=== PATIENT | female | born 1985 | race Caucasian/White ===

== ENCOUNTER 2017-07-20 18:23 | Emergency (ER) | payer OTHER ==
[~2017-07-20] VITALS: Ht 154.9 cm; Wt 61.2 kg
[~2017-07-20 18:23] MED LIST: IBUPROFEN600 MG PO; ULTRAM50 MG PO
== END 2017-07-20 20:27 | disposition home or self-care (01) ==
LOC: ED 18:23
DX: R10.9 Unspecified abdominal pain (principal); R10.813 Right lower quadrant abdominal tenderness; F17.200 Nicotine dependence, unspecified, uncomplicated; Z90.49 Acquired absence of other specified parts of digestive tract
CPT/HCPCS: 36415; 80053; 81001; 83690; 84703; 85025; 99283

== ENCOUNTER 2023-04-14 12:06 | Emergency (ER) | payer OTHER ==
[~2023-04-14] VITALS: Ht 154.9 cm; Wt 91.0 kg
--- OUTSIDE RECORDS SUMMARY | ~2023-04-14 | XMS | Continuity of Care Document ---
Demographics + + + | Address | [address] | | | [place] [address] | + + + | Preferred Language | Unknown | + + + | Marital Status | Never | + + + | Jehovah'S Witness Affiliation | Unknown | + + + | Race | White | + + + | Ethnic Group | Unknown | + + + Author + + + | Author | [facility] | + + + | Organization | [facility] | + + + | Address | [address] | | | [place] [address] | + + + | Phone | | + + + Care Team Providers + + + + | Care Lard Tub Washer Name | Role | Phone | + + + + Unavailable | Unavailable | + + + + Allergies and Intolerances + + + + + + | date | description | facility | reaction | severity | + + + + + + | (no date) | No Known | [facility] | (no reaction) | (no severity) | | | Allergies | | | | + + + + + + Encounters No information. Functional Status No information. Immunizations No information. Medications No information. Problems + + + + | date | description | facility | + + + + | 2023-02-13 16:00 | ENCNTR SCREEN MAMMOGRAM | [facility] | | | FOR MALIGNANT NE | | + + + + | 2023-02-13 16:00 | ENCNTR SCREEN MAMMOGRAM | [facility] | | | FOR MAL[facility]NA[facility] NEOPLASM OF | | | | BREAST | | + + + + | 2023-02-13 16:00 | FAMILY HISTORY OF | [facility] | | | MALIGNANT NEOPLASM OF | | | | BREAST | | + + + + Procedures No information. Results/Labs No information. Social History No information. Vital Signs No information."
--- OUTSIDE RECORDS SUMMARY | ~2023-04-14 | XMS | Continuity of Care Document ---
Demographics + + + | Address | [address] | | | [place] [address] | + + + | Preferred Language | Unknown | + + + | Marital Status | Never | + + + | Quaker Affiliation | Unknown | + + + | Race | White | + + + | Ethnic Group | Unknown | + + + Author + + + | Author | [facility] | + + + | Organization | [facility] | + + + | Address | [address] | | | [place] [address] | + + + | Phone | | + + + Care Team Providers + + + + | Care Building Official Name | Role | Phone | + [...]
--- OUTSIDE RECORDS SUMMARY | 2023-04-14 12:09 | XMS ---
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 Melvin has no Care Guidelines for this patient. Tg VISIT COUNT (12 MO.) 1 KEVON Holder TOTAL 1 NOTE: Visits indicate total known visits. ED/C VISIT TRACKING (12 MO.) 04/14/2023 12:07 KEVON Hernandez OR TYPE: Emergency COMPLAINT: - NECK PAIN INPATIENT VISIT TRACKING (12 MO.) No inpatient visits to display in this time frame [email or web address]
[2023-04-14] MEDS ORDERED: PHENTERMINE HCL15 MG PO (12:18)
[2023-04-14] MEDS ORDERED: LISINOPRIL20 MG PO (12:18)
[2023-04-14] MEDS ORDERED: PREDNISONE20 MG PO (13:01)
[2023-04-14 13:09] VITALS: BP 135/93
== END 2023-04-14 13:10 | disposition home or self-care (01) ==
LOC: ED 12:06
DX: M54.2 Cervicalgia (principal); F17.200 Nicotine dependence, unspecified, uncomplicated; Z79.899 Other long term (current) drug therapy
CPT/HCPCS: 99283

== ENCOUNTER 2023-06-07 17:04 | Emergency (ER) | payer OTHER ==
[~2023-06-07] VITALS: Ht 154.9 cm; Wt 89.7 kg
[~2023-06-07 17:04] MED LIST changes: +LISINOPRIL20 MG PO; +PHENTERMINE HCL15 MG PO; +PREDNISONE20 MG PO
[2023-06-07] MEDS ORDERED: KETOROLAC TROME10 MG PO (17:18)
[2023-06-07] MEDS ORDERED: CYCLOBENZAPRINE5 MG PO (17:18)
[2023-06-07 18:08] LABS: BILIRUBIN, URINE NEGATIVE (negative); BLOOD/HGB, URINE NEGATIVE (Negative); KETONE, URINE NEGATIVE (Negative); LEUK ESTERASE, URINE NEGATIVE (negative); NITRITE, URINE NEGATIVE (negative); PH, URINE 5.5 (5-7)
[2023-06-07 19:40] VITALS: BP 124/62
== END 2023-06-07 19:40 | disposition home or self-care (01) ==
LOC: ED 17:04
PROVIDERS: Emergency Medicine
DX: M54.6 Pain in thoracic spine (principal); M54.50 Low back pain, unspecified; F17.200 Nicotine dependence, unspecified, uncomplicated; Z79.52 Long term (current) use of systemic steroids; Z79.899 Other long term (current) drug therapy
CPT/HCPCS: 72070; 72100; 81003; 84703; 99283-25

== ENCOUNTER 2025-08-10 11:50 | Day surgery (SDC) | payer OTHER ==
[~2025-08-10] VITALS: Ht 154.9 cm; Wt 79.5 kg
[~2025-08-10 11:50] MED LIST changes: +CYCLOBENZAPRINE5 MG PO; +IBLOOD GLUCOSE TEST STRIP 1 EA TEST VI PRN; +KETOROLAC TROME10 MG PO; +LACTATED RINGER'S 1,000 ML IV SCH; +LIDOCAINE HCL 1% 5 ML SDV INJ ONE; +MIDAZOLAM HCL 5 MG/5 ML VIAL IV PRN; +fentaNYL citrate 100 MCG/2 ML VIAL IV PRN
[2025-08-10 12:28] VITALS: BP 109/69
[2025-08-10] MEDS ORDERED: MOUNJARO12.5 MG/0. SUB-Q (12:32)
[2025-08-10] MEDS ORDERED: fentaNYL citrate 100 MCG/2 ML VIAL ONE (12:54)
[2025-08-10] MEDS ORDERED: MIDAZOLAM HCL 5 MG/5 ML VIAL ONE (12:54)
--- NOTE | 2025-08-10 14:43 | NUR ---
08/10/25 1443 Sravanthi,Debra 1339 PT ARRIVED TO PACU, PT WAKES EASILY. VSS. PT DENIES CONCERNS. PLAN OF CARE DISCUSSED. 1350 HOB INCREASED AND PT ROLLED TO HER BACK. PT SIPPING WATER AND JUICE PER REQUEST. MD AT BEDSIDE TALKING TO PT. 1414 DC INSTRUCTIONS GIVEN AND PT DRESSED HERSELF. PT FAMILY CALLED FOR RIDE HOME. ALL QUESTIONS ANSWERED. DC PAPERWORK GIVEN. PT DC VIA .
[2025-08-10 14:45] VITALS: BP 101/78
--- NOTE | 2025-08-11 18:38 | OR ---
[facility] [address] [place], [place] [address] Signed DATE OF OPERATION: 08/10/2025 SURGEON: Alfred Coronel MD PREOPERATIVE DIAGNOSES: 1. Colon screening. 2. Family history of colon cancer, maternal grandfather and paternal grandfather. POSTOPERATIVE DIAGNOSIS: Edematous, mildly inflamed appendiceal orifice, otherwise normal. PROCEDURE: Total colonoscopy to cecum with biopsy of appendiceal orifice. ANESTHESIA: Intravenous sedation; fentanyl 100 mcg, Versed 9 mg. INDICATION: This 40-year-old woman is a patient of Shae Garcia and is here for a screening colonoscopy. She has no prior history of colon evaluation. She did undergo cholecystectomy in 2012 by me. She has family history of colon cancer in a paternal grandfather and maternal grandfather. She has no current symptoms of bleeding, diarrhea, or constipation. She is admitted at this time to undergo colonoscopy understanding the risk of bleeding, infection, and perforation. FINDINGS: The prep was excellent. Complete colonoscopy was undertaken of the cecum with full intubation of the cecum. Appendiceal orifice, where it was crater like edematous and somewhat inflamed. I saw no sign of intraluminal neoplasm or anything of that sort. She is not known to have had appendectomy in the past. Biopsies were obtained. The remaining colon and rectum were normal. DESCRIPTION OF PROCEDURE: The patient was brought to the endoscopy suite and placed in lateral decubitus position, given intravenous sedation to the point of slurred speech and nystagmus. Digital rectal examination was normal. An Olympus video colonoscope was passed in the rectum and manipulated throughout the colon ultimately intubating the cecum itself. The ileocecal valve and appendiceal orifice were identified. Appendiceal orifice had a crater like appearance, was somewhat inflamed and edematous unlike the surrounding cecal mucosa. It was biopsied and passed for permanent pathology. There was no evidence of intraluminal Electronically Signed By: ALFRED CORONEL MD 08/11/25 2266 PATIENT NAME: SELMA BROWER OPERATIVE REPORT DATE OF : 81 REPORT #: [id number] PHYSICIAN: ALFRED CORONEL MD PCP: SHAE GARCIA REPORT IS CONFIDENTIAL AND NOT TO BE RELEASED WITHOUT AUTHORIZATION [facility] [address] [place] [id number] Signed neoplasm or adenoma. The scope was withdrawn from that point. Examination throughout showed no sign of other abnormality. Retroflexed view was normal as well. Scope was removed. The patient was taken to the recovery room in good condition. CONCLUDING DIAGNOSIS: Inflamed appendiceal orifice without sign of neoplasm. PLAN: Await biopsies. Would otherwise recommend repeat colonoscopy in 7-10 years based on current guidelines as regards to family history. MD PRACHI Ham/YOJANA /[id number] cc: Shae Garcia PA-C Copies: SHAE GARCIA ~ Electronically Signed By: ALFRDE CORONEL MD 08/11/25 1838 PATIENT NAME: SELMA BROWER OPERATIVE REPORT DATE OF : 81 REPORT #: [id number] PHYSICIAN: ALFRED CORONEL MD PCP: SHAE GARCIA PAC REPORT IS CONFIDENTIAL AND NOT TO BE RELEASED WITHOUT AUTHORIZATION
== END 2025-08-10 14:14 | disposition home or self-care (01) ==
LOC: DS 11:50
PROVIDERS: ATTEND Surgery
PROC: 0DBJ8ZX Excision of Appendix, Via Natural or Artificial Opening Endoscopic, Diagnostic (ICD-10-PCS; principal; 2025-08-10 13:00)
DX: Z12.11 Encounter for screening for malignant neoplasm of colon (principal); K52.9 Noninfective gastroenteritis and colitis, unspecified; K38.8 Other specified diseases of appendix; I10 Essential (primary) hypertension; F17.210 Nicotine dependence, cigarettes, uncomplicated; F10.90 Alcohol use, unspecified, uncomplicated; E66.9 Obesity, unspecified; Z68.33 Body mass index [BMI] 33.0-33.9, adult; Z79.899 Other long term (current) drug therapy; Z90.49 Acquired absence of other specified parts of digestive tract; Z80.0 Family history of malignant neoplasm of digestive organs
CPT/HCPCS: 84703; 88305; 99153; G0500; J2250; J3010; J7121